=== PATIENT | male | born 1955 | race Caucasian/White ===

== ENCOUNTER 2019-10-15 10:01 | Outpatient (CLI) | payer MEDICARE, OTHER ==
--- NOTE | 2019-10-15 11:33 | RAD ---
RIGHT CLAVICLE 2 VIEWS: HISTORY: Question palpable area over right clavicle. FINDINGS: Right clavicle is unremarkable. AC joint normally aligned. The visualized right shoulder and upper right rib cage appear unremarkable. IMPRESSION: No acute finding. POS: AH
== END 2019-10-15 10:02 | disposition home or self-care (01) ==
LOC: BICRAD 10:01
PROVIDERS: ATTEND Family Medicine
DX: M89.311 Hypertrophy of bone, right shoulder (principal)
CPT/HCPCS: 36415; 80053; 80061; 85025; G0103